=== PATIENT | female | born 1995 | race Caucasian/White ===

== ENCOUNTER 2017-07-11 14:29 | Emergency (ER) | END 2017-07-11 17:28 | disposition home or self-care (01) ==

== ENCOUNTER 2017-07-28 12:06 | Emergency (ER) | END 2017-07-28 14:44 | disposition home or self-care (01) ==

== ENCOUNTER 2017-09-25 23:09 | Emergency (ER) | END 2017-09-26 05:30 | disposition home or self-care (01) ==

== ENCOUNTER 2018-01-21 21:45 | Outpatient (CLI) | END 2018-01-22 06:45 | disposition home or self-care (01) ==

== ENCOUNTER 2018-02-09 04:40 | Inpatient (IN) | END 2018-02-11 13:05 | disposition home or self-care (01) | DRG 807 ==

== ENCOUNTER 2018-03-05 16:46 | Emergency (ER) | payer MEDICAID ==
[~2018-03-05] VITALS: Wt 86.5 kg
[2018-03-05 16:52] VITALS: RESP 22
[2018-03-05] MEDS ORDERED: ACETAMINOPHEN 500 MG TAB PO STA (17:08)
[2018-03-05] MEDS ORDERED: SODIUM CHLORIDE 0.9% 1L BAG IV* STA (17:24)
[2018-03-05] MEDS ORDERED: CEFTRIAXONE 1 GM/50 ML (PMX) 50 ML IVPB ONE (17:30)
[2018-03-05] MEDS: VANCOMYCIN 1 GM (PMX) 250 ML IVPB ONE ×2 (17:30→18:45)
[2018-03-05] MEDS ORDERED: IBUPROFEN 600 MG TAB PO ONE (17:30)
[2018-03-05] MEDS ORDERED: AMOX1TAB10 PO (18:46)
--- NOTE | 2018-03-05 18:49 | ERD ---
ER Documentation Chief Complaint Chief Complaint bib self, cc: fever x 2 days HPI 23-year-old female presents with fever for the past 2 days. She is also complaining of back pain and urinary frequency but no dysuria or hematuria. She is also stating that she is currently breast-feeding and is complaining of bilateral breast pain and warmth and states that her breasts feel hard and she has been having difficulty with pumping and only small amount of milk comes out when she pumps. No nausea or vomiting. She took Motrin at about 7 AM. No cough. ROS All systems reviewed and are negative except as per history of present illness. Medications Home Meds Active Scripts Amoxicillin/Potassium Clav (Amox-Clav 875-125 mg Tablet) 875-125 mg Tab, 1 TAB PO BID for 10 Days, #20 TAB Prov:ZULY GIVENS PA-C 03/05/18 Allergies Allergies: Coded Allergies: No Known Allergy (Unverified , 02/09/18) PMhx/Soc History of Surgery: Yes (heart at age 3.) Anesthesia Reaction: No Hx Neurological Disorder: No Hx Respiratory Disorders: No Hx Cardiac Disorders: No Hx Psychiatric Problems: No Hx Miscellaneous Medical Probl: No Hx Alcohol Use: No Hx Substance Use: No Hx Tobacco Use: No FmHx Family History: No diabetes Physical Exam Vitals Vital Signs Date Temp Pulse Resp B/P (MAP) Pulse Ox O2 O2 Flow FiO2 Time Delivery Rate 03/05/18 103.6 17:27 03/05/18 104.2 17:16 03/05/18 104.2 17:16 03/05/18 104.2 132 22 154/87 100 16:52 (109) Physical Exam INITIAL VITAL SIGNS: Reviewed by me GENERAL: Awake, alert and oriented x 4, well appearing, nontoxic, speaking in full sentences. No acute distress HEAD: Atraumatic NECK: Supple. No masses. Full range of motion. No meningismus. No midline t enderness. THROAT: No tonilar erythema or edema. No exudates. Uvula midline. No kissing tonsils. RESPIRATORY: Clear to auscultation bilaterally. Symmetric chest wall rise. No wheezing or rales. No accessory muscle use. CV: Regular rate and rhythm. No murmurs, rubs, or gallops. ABDOMEN: Soft, non-distended. Nontender. Negative [place]. Negative [place] point tenderness. No CVA tenderness bilaterally. No guarding. No rebound. Breast: Performed with TINY Blevins, bilateral breasts have no induration or abscess or mass appreciated however both wrists are warm to touch and mildly erythematous Result Diagram: 03/05/18 1739 03/05/18 1739 Results 24 hrs Laboratory Tests Test 03/05/18 17:39 03/05/18 17:41 03/05/18 17:49 White Blood Count 12.0 10^3/ul Red Blood Count 4.53 10^6/ul Hemoglobin 12.8 g/dl Hematocrit 39.3 % Mean Corpuscular Volume 86.8 fl Mean Corpuscular Hemoglobin 28.3 pg Mean Corpuscular 32.6 g/dl Hemoglobin Concent Red Cell Distribution Width 12.9 % Platelet Count 234 10^3/UL Mean Platelet Volume 9.4 fl Immature Granulocytes % 0.300 % Neutrophils % 84.0 % Lymphocytes % 11.1 % Monocytes % 4.3 % Eosinophils % 0.0 % Basophils % 0.3 % Nucleated Red Blood Cells % 0.0 /100WBC Immature Granulocytes # 0.030 10^3/ul Neutrophils # 10.1 10^3/ul Lymphocytes # 1.3 10^3/ul Monocytes # 0.5 10^3/ul Eosinophils # 0.0 10^3/ul Basophils # 0.0 10^3/ul Nucleated Red Blood Cells # 0.0 10^3/ul Prothrombin Time 12.8 Sec Prothrombin Time Ratio 1.0 INR International 0.95 Normalized Ratio Activated Partial Thromboplast 30.6 Sec Time Urine Color YELLOW Urine Clarity SLIGHTLY CLOUDY Urine pH 6.0 Urine Specific [place] 1.009 Urine Ketones NEGATIVE mg/dL Urine Nitrite NEGATIVE mg/dL Urine Bilirubin NEGATIVE mg/dL Urine Urobilinogen NEGATIVE mg/dL Urine Leukocyte Esterase 3+ Mckay/ul Urine Microscopic RBC 2 /HPF Urine Microscopic WBC 35 /HPF Urine Bacteria FEW /HPF Urine Hemoglobin 1+ mg/dL Urine Glucose NEGATIVE mg/dL Urine Total Protein NEGATIVE mg/dl Sodium Level 138 mmol/L Potassium Level 3.9 mmol/L Chloride Level 105 mmol/L Carbon Dioxide Level 21 mmol/L Anion Gap 12 Blood Urea Nitrogen 12 mg/dl Creatinine 0.84 mg/dl Est Glomerular Filtrat > 60 mL/min Rate mL/min Glucose Level 103 mg/dl Calcium Level 9.9 mg/dl Total Bilirubin 0.2 mg/dl Direct Bilirubin 0.00 mg/dl Indirect Bilirubin 0.2 mg/dl Aspartate Amino Transf (AST/SGOT) 20 IU/L Alanine 15 IU/L Aminotransferase (ALT/SGPT) Alkaline Phosphatase 122 IU/L Total Protein 8.3 g/dl Albumin 4.5 g/dl Globulin 3.80 g/dl Albumin/Globulin Ratio 1.18 POC Beta HCG, Qualitative NEGATIVE POC Venous Lactate 1.0 mmol/L Current Medications Medications Dose Sig/Bridget Start Time Status Last (Trade) Ordered Route PRN Stop Time Admin Dose Reason Admin 1,000 mg ONCE STAT 03/05/18 DC 03/05/18 Acetaminophen PO 17:08 17:16 (Tylenol 03/05/18 17:10 Tab) Ibuprofen 600 mg ONCE ONCE 03/05/18 DC 03/05/18 (Motrin) PO 17:30 17:16 03/05/18 17:31 Sodium 2,600 ml BOLUS OVER 2 03/05/18 DC 03/05/18 Chloride HOURS STAT 17:24 18:02 (NS) IV* 03/05/18 17:27 Vancomycin 250 ml @ ONCE ONCE 03/05/18 03/05/18 HCl 125 mls/hr IVPB 17:30 18:45 03/05/18 19:29 Ceftriaxone 50 ml @ ONCE ONCE 03/05/18 DC 03/05/18 Sodium 100 mls/hr IVPB 17:30 18:02 03/05/18 17:59 Procedures/MDM Patient presents with high fever and tachycardia. She is given Tylenol and Motrin here. Sepsis protocol was initiated. Her lactic acid was 1. Labs are consistent with pyelonephritis. Physical exam is consistent also with mastitis. Patient will be treated outpatient with Augmentin. Reviewed case with Dr. Matt who agrees with the plan. Patient counseled regarding my diagnostic impression and care plan. Prior to discharge all questions answered. Pt agrees with treatment plan and understands strict return precautions. Pt is instructed to follow up with primary care provider within 24-48 hours. Precautionary instructions provided including instructions to return to the ER if not improving or for any worsening or changing symptoms or concerns. Departure Diagnosis: Primary Impression: Pyelonephritis Additional Impression: Mastitis Condition: Stable Patient Instructions: Mastitis, Pyelonephritis, Female (Adult) Additional Instructions: Call your primary care doctor TOMORROW for an appointment during the next 1-2 days.See the doctor sooner or return here if your condition worsens before your appointment time. ZULY GIVENS PA-C Mar 05, 2018 18:49
[2018-03-05 19:04] VITALS: BP 125/75; PULSE 98
== END 2018-03-05 19:06 | disposition home or self-care (01) ==
LOC: FTE 16:46
DX: N12 Tubulo-interstitial nephritis, not specified as acute or chronic (principal); N61.0 Mastitis without abscess
CPT/HCPCS: 36415; 80053; 81001; 81025; 83605; 85025; 85610; 85730; 87040; 87086; 87400; 96374; J0696; J3370; J7030; Z7502; Z7610

== ENCOUNTER 2018-03-28 20:59 | Emergency (ER) | payer MEDICAID ==
[~2018-03-28] VITALS: Ht 167.6 cm; Wt 87.0 kg
[~2018-03-28 20:59] MED LIST: AMOX1TAB10 PO
[2018-03-28 21:09] VITALS: Ht 167.6 cm; Wt 87.0 kg
[2018-03-28] MEDS ORDERED: ACETAMINOPHEN 500 MG TAB PO STA (22:16)
[2018-03-28] MEDS ORDERED: morphine 4 MG/ML VIAL IM STA (22:20)
[2018-03-28] MEDS ORDERED: CLIN300C10 PO (22:47)
--- NOTE | 2018-03-28 22:50 | ERD ---
ER Documentation Chief Complaint Chief Complaint left breast pain x 1 day, dx with mastitis x 1 month HPI 23-year-old breast-feeding female is here with left breast pain that began today. Also describes redness. No fever. No vomiting. ROS All systems reviewed and are negative except as per history of present illness. Medications Home Meds Active Scripts Clindamycin Hcl* (Clindamycin Hcl*) 300 Mg Capsule, 300 MG PO TID for 10 Days, CAP Prov:ZULY GIVENS PA-C 03/28/18 Amoxicillin/Potassium Clav (Amox-Clav 875-125 mg Tablet) 875-125 mg Tab, 1 TAB PO BID for 10 Days, #20 TAB Prov:ZULY GIVENS PA-C 03/05/18 Allergies Allergies: Coded Allergies: No Known Allergy (Unverified , 02/09/18) PMhx/Soc History of Surgery: Yes (heart at age 3.) Anesthesia Reaction: No Hx Neurological Disorder: No Hx Respiratory Disorders: No Hx Cardiac Disorders: No Hx Psychiatric Problems: No Hx Miscellaneous Medical Probl: No Hx Alcohol Use: No Hx Substance Use: No Hx Tobacco Use: No Smoking Status: Never smoker FmHx Family History: No diabetes Physical Exam Vitals Vital Signs Date Temp Pulse Resp B/P (MAP) Pulse Ox O2 O2 Flow FiO2 Time Delivery Rate 03/28/18 100.5 67 18 131/90 100 21:09 (104) Physical Exam Const: No acute distress Head: Atraumatic Eyes: Normal Conjunctiva ENT: Normal External Ears, Nose and Mouth. Neck: Full range of motion. No meningismus. 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 Low suspicion for abscess at this time. Patient was given clindamycin prescription. She was given Tylenol here as well as injection of morphine for pain control. Patient counseled regarding my diagnostic impression and care plan. Prior to discharge all questions answered. Pt agrees with treatment plan and understands strict return precautions. Pt is instructed to follow up with primary care provider within 24-48 hours. Precautionary instructions provided including instructions to return to the ER if not improving or for any worsening or changing symptoms or concerns. Departure Diagnosis: Primary Impression: Mastitis Condition: Stable Patient Instructions: Mastitis Additional Instructions: Call your primary care doctor TOMORROW for an appointment during the next 1-2 days.See the doctor sooner or return here if your condition worsens before your appointment time. ZULY GIVENS PA-C Mar 28, 2018 22:50
== END 2018-03-28 22:58 | disposition home or self-care (01) ==
LOC: FTE 20:59
DX: O91.22 Nonpurulent mastitis associated with the puerperium (principal); B96.89 Other specified bacterial agents as the cause of diseases classified elsewhere
CPT/HCPCS: 96372; J2270; Z7502; Z7610

== ENCOUNTER 2018-05-21 11:52 | Emergency (ER) | payer SELFPAY ==
[~2018-05-21] VITALS: Ht 167.6 cm; Wt 87.0 kg
[~2018-05-21 11:52] MED LIST changes: +CLIN300C10 PO
[2018-05-21 11:58] VITALS: BP 138/79; PULSE 106; RESP 20; Ht 167.6 cm; Wt 87.0 kg
[2018-05-21] MEDS ORDERED: MED4DP PO (14:19)
[2018-05-21] MEDS ORDERED: NAPR-985 PO (14:19)
--- NOTE | 2018-05-21 14:55 | ERD ---
ER Documentation Chief Complaint Chief Complaint back pain HPI 23-year-old female presenting with back pain. Patient states that she has sharp pain in the mid back that comes and goes sporadically. It does appear to be worse with certain movements. Denies any numbness or tingling and denies fevers. Has not taken medications for symptoms. Denies any abdominal pain. Denies changes in urination or bowel movement. Patient did have epidural placed 4 months ago and she is unsure if that could be the cause that she did not experiences back pain prior to her epidural. Medical history denies. NKDA. Surgical history heart murmur repair as a child. Social history denies ROS All systems reviewed and are negative except as per history of present illness. Medications Home Meds Active Scripts Naproxen* (Naprosyn*) 500 Mg Tablet, 500 MG PO BID PRN for PAIN AND/OR INFLAMMATION, #30 TAB Prov:ALISA SINGH PA-C 05/21/18 Methylprednisolone* (Medrol* DOSE PACK) 4 Mg/Dose-Pack Tab.ds.pk, 4 MG PO . DIRECTED, #1 PACKET Prov:ALISA SINGH PA-C 05/21/18 Clindamycin Hcl* (Clindamycin Hcl*) 300 Mg Capsule, 300 MG PO TID for 10 Days, CAP Prov:ZULY GIVENS PA-C 03/28/18 Amoxicillin/Potassium Clav (Amox-Clav 875-125 mg Tablet) 875-125 mg Tab, 1 TAB PO BID for 10 Days, #20 TAB Prov:ZULY GIEVNS PA-C 03/05/18 Allergies Allergies: Coded Allergies: No Known Allergy (Unverified , 02/09/18) PMhx/Soc History of Surgery: Yes (heart at age 3.) Anesthesia Reaction: No Hx Neurological Disorder: No Hx Respiratory Disorders: No Hx Cardiac Disorders: No Hx Psychiatric Problems: No Hx Miscellaneous Medical Probl: No Hx Alcohol Use: No Hx Substance Use: No Hx Tobacco Use: No FmHx Family History: No diabetes, No coronary disease, No other Physical Exam Vitals Vital Signs Date Temp Pulse Resp B/P (MAP) Pulse Ox O2 O2 Flow FiO2 Time Delivery Rate 05/21/18 98.8 106 20 138/79 99 11:58 (98) Physical Exam GENERAL: The patient is well-appearing, well-nourished, in no acute distress CHEST: Clear to auscultation bilaterally. There are no rales, wheezes or rhonchi. HEART: Regular rate and rhythm. No murmurs, clicks, rubs or gallops. BACK: Midline tenderness with no bony step-offs. EXTREMITIES: Equal pulses bilaterally. There is no peripheral clubbing, cyanosis or edema. No focal swelling or erythema. Full range of motion. Grossly neurovascularly intact. NEUROLOGIC: Alert and oriented. Cranial nerves II through XII intact. Motor strength in all 4 extremities with 5 out of 5 strength. Sensation grossly intact. Normal speech and gait. SKIN: There is no apparent rash or petechiae. The skin is warm and dry. Results 24 hrs Laboratory Tests Test 05/21/18 12:59 05/21/18 13:01 Bedside Urine pH (LAB) 5.5 Bedside Urine Protein (LAB) Negative Bedside Urine Glucose (UA) Negative Bedside Urine Ketones (LAB) Negative Bedside Urine Blood Negative Bedside Urine Nitrite (LAB) Negative Bedside Urine Leukocyte Esterase (L Trace POC Beta HCG, Qualitative NEGATIVE Procedures/MDM DIAGNOSTIC IMAGING REPORT Patient: MERCEDEZ HYATT : 1995 Age: 23 Sex: F MR #: [id number] DOS: 05/21/18 1237 Ordering MD: MAGEN SINGH PA-C Location: [facility] Room/Bed: PROCEDURE: XR Lumbar Spine. CLINICAL INDICATION: back pain TECHNIQUE: AP, lateral and cone-down lateral view of the lumbar spine were obtained. COMPARISON: No prior studies are available for comparison. FINDINGS: There is normal vertebral mineralization and alignment. No fracture or subluxation is seen. The disc spaces are normal in appearance. The posterior elements are unremarkable. The soft tissues appear normal. IMPRESSION: Unremarkable lumbar spine. DIAGNOSTIC IMAGING REPORT Patient: MERCEDEZ HYATT : 1995 Age: 23 Sex: F MR #: [id number] DOS: 05/21/18 1237 Ordering MD: MAGEN SINGH PA-C Location: [facility] Room/Bed: PROCEDURE: XR thoracic Spine. CLINICAL INDICATION: back pain TECHNIQUE: AP, lateral and swimmer's views of the thoracic spine were obtained. COMPARISON: No prior studies are available for comparison. FINDINGS: There is normal vertebral mineralization and alignment. No acute fracture or subluxation is seen. The disc spaces are normal in appearance. The posterior elements are unremarkable. The soft tissues appear normal. IMPRESSION: Unremarkable thoracic spine. MDM: 23-year-old female presents with back pain. A low suspicion for acute fracture dislocation. I have low suspicion for neuro deficit. I have low suspicion for infectious etiology. Patient is discharged with supportive medications. Patient is told if symptoms are. It is recommended follow-up with primary care. All questions answered at discharge Departure Diagnosis: Primary Impression: Back pain Condition: Stable Patient Instructions: Back Pain (Acute Or Chronic) Referrals: [facility] YOU HAVE RECEIVED A MEDICAL SCREENING EXAM AND THE RESULTS INDICATE THAT YOU DO NOT HAVE A CONDITION THAT REQUIRES URGENT TREATMENT IN THE EMERGENCY DEPARTMENT. FURTHER EVALUATION AND TREATMENT OF YOUR CONDITION CAN WAIT UNTIL YOU ARE SEEN IN YOUR DOCTORS OFFICE WITHIN THE NEXT 1-2 DAYS. IT IS YOUR RESPONSIBILITY TO MAKE AN APPOINTMENT FOR FOLOW-UP CARE. IF YOU HAVE A PRIMARY DOCTOR --you should call your primary doctor and schedule an appointment IF YOU DO NOT HAVE A PRIMARY DOCTOR YOU CAN CALL OUR PHYSICIAN REFERRAL HOTLINE AT IF YOU CAN NOT AFFORD TO SEE A PHYSICIAN YOU CAN CHOSE FROM THE FOLLOWING [facility] [address] [facility]. [facility] [address] [facility]. [facility] [address] [facility] [facility] [address] [facility]. [facility] [address] [facility]. [facility]. [address] Additional Instructions: FOLLOW UP WITH YOUR PRIMARY CARE PHYSICIAN TOMORROW.Return to this facility if you are not improving as expected. ALISA SINGH PA-C May 21, 2018 14:55
== END 2018-05-21 14:36 | disposition home or self-care (01) ==
LOC: FTE 11:52
DX: M54.9 Dorsalgia, unspecified (principal)
CPT/HCPCS: 72072; 72100; 81003; 81025